=== PATIENT | male | born 1955 | race Caucasian/White ===

== ENCOUNTER 2023-03-01 07:02 | Emergency (ER) | payer MEDICARE, OTHER ==
[~2023-03-01] VITALS: Ht 175.3 cm; Wt 87.0 kg
[2023-03-01 07:12] VITALS: BP 145/70; PULSE 85; RESP 18; TEMP 97.6; O2SAT 96
== END 2023-03-01 10:04 | disposition home or self-care (01) ==
LOC: ER 07:03
DX: S16.1XXA Strain of muscle, fascia and tendon at neck level, initial encounter (principal); Z88.0 Allergy status to penicillin; Z88.1 Allergy status to other antibiotic agents; Z88.8 Allergy status to other drugs, medicaments and biological substances; V95.8XXA Other powered aircraft accidents injuring occupant, initial encounter; Y93.89 Activity, other specified; Y92.89 Other specified places as the place of occurrence of the external cause; Y99.8 Other external cause status
CPT/HCPCS: 72141; 99284